=== PATIENT | female | born 1945 | race Caucasian/White ===

== ENCOUNTER 2019-04-09 10:49 | Emergency (ER) | payer MEDICAID ==
[~2019-04-09] VITALS: Ht 135.9 cm; Wt 43.5 kg
[2019-04-09 10:57] VITALS: BP 177/77
[2019-04-09] MEDS ORDERED: ACETAMINOPHEN EXTRA STRENGTH 500 MG TAB PO ONE (11:30)
--- NOTE | 2019-04-09 11:31 | NUR ---
73 Y/O FEMALE C/O RODAS, BLURRY VISION X 3 DAYS. PT FAMILY MEMBER STATES SHE FELL 2 WEEKS AGOA ND HIT HER FRONT PART OF THE HEAD. DENIES ANY LOC. PT STAETES SHE HAS RODAS, BLURRY VISION AND RATES PAIN 10/10 AND DESCRIBES IT PRESSURE. VSS. A & O X4. USE CANE TO WALK. PERRLA 3MM BRISK. SENSATIVE TO LIGHT. NO N,V,D. NO HEMTAOMA PRESENT ON HEAD. NO OBVIOUS INJURY NOTED. NKA. PMH: HTN.
--- NOTE | 2019-04-09 11:39 | NUR ---
pt transfer to ct via w/c.
--- NOTE | 2019-04-09 11:50 | NUR ---
Patient returned from CT scan. RN re-evaluating the patient at bedside.
[2019-04-09 12:47] LABS: BASOPHILS % (AUTO) 0.3 % (0.0-2.0); EOSINOPHILS # (AUTO) 0.1 K/uL (0-0.4); HEMATOCRIT 35.5 % (36-48); LYMPHOCYTES % (AUTO) 27.8 % (20.5-51.1); MEAN CORPUSCULAR HEMOGLOBIN 30 pg (27-31); MEAN CORPUSCULAR HGB CONC 34 g/dL (33-37); MEAN CORPUSCULAR VOLUME 88.4 fL (80-94); MONOCYTES # (AUTO) 0.8 K/uL (0.8-1.0); MONOCYTES % (AUTO) 10.7 % (1.7-9.3); NEUTROPHILS # (AUTO) 4.2 K/uL (1.8-7.7); NEUTROPHILS % (AUTO) 59.2 % (42.2-75.2); PLATELET COUNT (AUTO) 254 K/uL (140-450); RED BLOOD CELL COUNT(AUTO) 4.01 MIL/uL (4.20-5.40); RED CELL DISTRIBUTION WIDTH 14.1 % (11.6-13.7); WHITE BLOOD COUNT (AUTO) 7.1 K/uL (4.8-10.8)
[2019-04-09 13:16] LABS: ANION GAP 14.2 (8-16); CARBON DIOXIDE 26.6 mmol/L (21-32); CHLORIDE 108 mmol/L (98-107); CREATININE 0.7 mg/dL (0.6-1.3); GLUCOSE 140 mg/dL (74-106); POTASSIUM 3.8 mmol/L (3.5-5.1); SODIUM SERUM 145 mmol/L (136-145); UREA NITROGEN, BLOOD 11 mg/dL (7-18)
[2019-04-09 14:02] VITALS: BP 147/64
--- NOTE | 2019-04-09 14:02 | NUR ---
Patient discharged with v/s stable. Written and verbal after care instructions given and explained. Patient verbalized understanding. Ambulatory with by caregiver. All questions addressed prior to discharge. Advised to follow up with PMD.
== END 2019-04-09 14:02 | disposition home or self-care (01) ==
LOC: MED 10:49
DX: R51 Headache (principal); H53.8 Other visual disturbances; I10 Essential (primary) hypertension; W18.30XA Fall on same level, unspecified, initial encounter; Y93.89 Activity, other specified; Y92.091 Bathroom in other non-institutional residence as the place of occurrence of the external cause; Y99.8 Other external cause status
CPT/HCPCS: 36415; 70450; 80048; 85025; 99284